=== PATIENT | male | born 1970 | race Caucasian/White ===

== ENCOUNTER 2017-01-11 11:20 | Observation (INO) | payer BC ==
[~2017-01-11] VITALS: Ht 177.8 cm; Wt 112.7 kg
[~2017-01-11 11:20] MED LIST: GLYBURIDE 5MG TA5 MG PO; JARDIANCE25 MG PO; METFORMIN 500M500 M1 PO; NAPROSYN 500MG500 MG PO; SYNTHROID 0.00.05 MG PO
[2017-01-11 11:22] VITALS: BP 137/86
[2017-01-11 11:48] LABS: HEMOGLOBIN 15.2 g/dL (14.1-18.0); LYMPH # 3.4 K/mm3 (0.7-4.5); LYMPH % 41.6 % (10-50)
--- NOTE | 2017-01-11 11:52 | Emergency Room Report ---
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 N Clinical Suspician of Infection? N Mental Status: 1 - Regular (Normal Baseline) Sepsis Risk:Possible Sepsis Risk Have you (or family members/close friends) recently traveled outside the [place]? N If Yes, where/when: Have you had exposure to infectious disease within the past month? N TB? Other? Specify: 46 years old white male with history of reflux disease, he signed in with a chief complaint of shortness of breath. He states that he has a reflux disease and he feels acid taste in his mouth and he must have aspirated some of his acid. Although he signed in as a chest pain he denies having pressure heaviness palpitations nausea vomiting. I had an initial suspicious electrocardiogram of an ST elevation in inferior leads. Upon repeating the electrocardiogram that was normal ST abnomality. Source patient, RN notes reviewed, family Exam Limitations no limitations ALLERGIES Uncoded Allergies: PAIN MEDS (11/26/16) Home Medications Reported Medications Levothyroxine Sodium (Synthroid 0.05MG) NAPROXEN (NAPROSYN 500MG TAB) Metformin HCl (Metformin) Glyburide (Glyburide 5MG) Empagliflozin (Jardiance) History Medical History General Thyroid Problems? Yes Diabetes? Yes Insulin Dependent: No Insulin Pump: No Home FSBS? No Renal Insuffiency? No Arthritis? Yes Immunization Hx DT/Tetanus Unknown Surgical Hx Previous Surgery?Y PERIODONTAL 2005 Family History Family Hx Diabetes Yes Social History Smoking Hx Smoker: Never Smoker Tobacco: No Alcohol Alcohol: No Review of Systems All Other Systems Reviewed and Negative Constitutional no symptoms reported Eyes no symptoms reported ENT no symptoms reported, see HPI (acid in the mouth). Respiratory see HPI, shortness of breath Cardiovascular see HPI, chest pain Gastrointestinal no symptoms reported, see HPI (heart burn) Genitourinary no symptoms reported. Musculoskeletal no symptoms reported Skin no symptoms reported Psychiatric/Neurological no symptoms reported Physical Exam Vital Signs Vital Signs Date Time Temp Pulse Resp B/P Pulse O2 O2 Flow FiO2 Ox Delivery Rate 01/11 1308 90 20 107/64 90 01/11 1159 89 20 129/74 99 01/11 1158 97 22 129/74 100 01/11 1122 98.1 90 22 137/86 97 - WBC >12,000 or <4,000 or 10% bands? 2 or more SIRS Criteria Met? B/P:137/86 MAP:103 Creatinine >2.0? UA output<0.5ml/kg/hr for 2 hrs? Platelet count >100,000? Lactate >2.0mmol/1? INR >1.2 or PTT > than 60 sec? Evidence of Organ Dysfunction? Provider documented clinical suspician of infection? N Sepsis Criteria Count: 2 Sepsis Risk: Possible Sepsis Risk General Appearance moderate distress Eye Exam - bilateral eye normal exam, bilateral eye PERRL, bilateral eye EOMI Ear, Nose, Throat hearing grossly normal, normal ENT inspection Neck normal inspection, non-tender, supple, full range of motion Respiratory Status Yes: trachea midline, chest symmetrical, non tender chest. No: respiratory distress. Lung Sounds bilateral: lungs clear. Cardiovascular normal exam, regular rate/rhythm, no peripheral edema, no gallop, no JVD, no murmur, no rub, normal peripheral pulses Peripheral Pulses Pulses normal Yes Gastrointestinal normal bowel sounds, normal exam, non tender, soft, no organomegaly Back normal inspection, no CVA tenderness, no vertebral tenderness Extremities non-tender, normal range of motion, normal inspection Neurologic alert, overnight stocker II-XII nml as tested, normal exam, oriented x 3 Reflexes Reflexes normal Yes Skin intact, normal color, warm/dry Medical Decision Making LABS/Meds/Orders Pt receiving controlled substance in ED? No Results/Orders Laboratory Tests 01/11/17 1130: Sodium 138, Potassium 3.8, Chloride 101, Carbon Dioxide 26, BUN 20 H, Creatinine 1.1, Estimated Creat Clear 129, Estimated GFR (MDRD) 71, Glucose 169 H, Calcium 8.8, Total Bilirubin 0.5, AST 28, ALT 47, Alkaline Phosphatase 67, Creatine Kinase 499 H, CK-MB (CK-2) Rel Index 0.7, CK and CKMB Interp 3.3, Troponin I < 0.02, B-Natriuretic Peptide < 5, Total Protein 7.0, Albumin 3.8, Globulin 3.2, Albumin/Globulin Ratio 1.2, D-Dimer < 100, WBC 8.2, RBC 5.25, Hgb 15.2, Hct 45.6, MCV 86.7, RDW 13.5, Plt Count 289, MPV 6.9 L, Gran % 48.6, Gran # 4.0, Lymphocytes % 41.6, Monocytes % 6.2, Eosinophils % 2.9, Basophils % 0.6, Lymphocytes # 3.4, Monocytes # 0.5, Eosinophils # 0.2, Basophils # 0.1, PUBS MCHC 33.4, MCH 29.0 Current Medication Orders Sig/Dharmesh Start time Last Medication Dose Route Stop Time Status Admin Multi-Ingredient GI 60 ML ONCE ONE 01/11 1200 DC 01/11 Drug PO 01/11 1201 1155 Multi-Ingredient GI 0 .STK-MED ONE 01/11 1154 DC Drug PO Albuterol 2.5 MG ONCE ONE 01/11 1145 DC 01/11 INH 01/11 1146 1149 Aspirin 324 MG ONCE ONE 01/11 1145 DC 01/11 PO 01/11 1146 1137 Nitroglycerin 0.5 IN ONCE ONE 01/11 1145 DC 01/11 TP 01/11 1146 1146 Pantoprazole Sodium 40 MG ONCE ONE 01/11 1145 DC 01/11 IV 01/11 1146 1146 Sodium Chloride 10 ML ONCE ONE 01/11 1145 DC IV 01/11 1146 Nitroglycerin 0 .STK-MED ONE 01/11 1144 DC .ROUTE Pantoprazole Sodium 0 .STK-MED ONE 01/11 1144 DC IV Nitroglycerin 0 .STK-MED ONE 01/11 1138 DC SL Aspirin 0 .STK-MED ONE 01/11 1135 DC .ROUTE Orders Procedure Date/time Status Decision to admit 01/11 1342 Active RT Aerosol Treatment, Provide 01/11 1149 Active RT REQUEST ALBUTEROL NEB 01/11 1141 Active 12 LEAD EKG-LAWSON (INITIAL) 01/11 1130 Active ELECTROCARDIOGRAM REQUEST 01/11 1130 Active D-DIMER 01/11 1130 Complete CBC WITH AUTO DIFF 01/11 1130 Complete CARDIAC ENZYMES 01/11 1130 Complete CHEM 12 PROFILE 01/11 1130 Complete BRAIN NATRIURETIC PEPTIDE 01/11 1130 Complete CM/EKG CM/EKG EKG present medications 96/m questionable ST elevation in one lead at Lead II. Multiple beats in lead III and corrected in AVF. 12 minutes repeated EKG Electrocardiogram with controlled respiration normal sinus [address] segement is normal, p. ars and T waves are within normal. no acutre XRAY/CT/US XRAY/CT/US XRAY chest XR interpretation by reviewed by me, discussed w/radiologist Xray Results normal/NAD Departure Departure Time of Disposition 1352 Disposition Still a Patient Clinical Impression Primary Impression: Chest pain Secondary Impressions: Reflux esophagitis, Shortness of breath Condition STABLE Referrals Halie HERNÁNDEZ,Bean (Family) Additional Instructions The patient felt better and first set of enzymes were normal except total CK. I discussed with him the need for admission and work up and he agreed. I spoke with dr stephens covering for Dr Singh who agreed to admmit for r/o VT and Cardiology consult. He was admitted in a stable condtition. Dr. Miguel Discharge Counseling Counseled pt/family regarding diagnosis, test results, medications/RX, follow up needs ED Critical Care Critical Care No If Critical Care minutes are documented, the time involved in the performance of seperately reportable procedures was not counted toward critical care time documented. I directly delivered medical care to this critically ill and/or injured patient. Timely evaluation and treatment was necessary to address the significant organ system(s) dysfunction present in this patient. at 1354
[2017-01-11 12:14] LABS: BUN 20 mg/dL (7-18)
[2017-01-11 12:16] LABS: GFR (ESTIMATED) 71 ML/MIN (>60)
--- NOTE | 2017-01-11 13:20 | RADIOLOGY REPORT PS360 ---
CHEST(2 VIEWS-NOT PORTABLE) COMPARISON: PA and lateral chest 12/01/2016 HISTORY: Chest pain TECHNIQUE: PA and lateral chest FINDINGS: The lung harrington are well expanded and appear clear of infiltrate. The cardiac silhouette is normal and the vascularity is normal. Again noted is a large calcified subcarinal node. There is no pleural fluid. IMPRESSION: Old granulomatous disease, no acute chest pathology noted
[2017-01-11 14:47] VITALS: BP 112/62
[2017-01-11 20:14] VITALS: BP 111/71
[2017-01-11 20:50] VITALS: BP 111/71
--- NOTE | 2017-01-11 23:00 | HISTORY AND PHYSICAL REPORT ---
History and Physical ([facility]CA) Date of admission: 01/11/17 Chief complaint: Acid reflux with possible aspiration. History: History of Present Illness: This 46-year-old white male was admitted in the emergency room this morning. He states that he was awakened about 10:30 this morning with a feeling of acid in his throat and the possibility that he had aspirated some of this. He was coughing and congested. He has had problems in the past with acid reflux. He also suffers from nonalcoholic steatohepatitis has had a history of elevated liver enzymes. He also has type 2 diabetes and is maintained on oral medications for that. He also has hypothyroidism. The emergency room doctor was concerned about possibility of chest pain. The patient does not feel that this has been the problem. He relates it directly to the episode this morning where he aspirated some stomach acid. Past Medical History: Medical History: CAD? No Angina: No [place]: No Hypertension? No Hyperlipidemia? No CHF? No DVT? No PE? No COPD? No Asthma? No (but takes montelukast) Anemia? No GERD? Yes Gastric ulcers? No GI Bleed? No Hernia? No Thyroid Problems? Yes (levothyroxine 50 mcg) Hypothyroidism? Yes CVA? No Seizures? No Diabetes? Yes (Jardiance,metformin,glyburide) Insulin Dependent: No Insulin Pump: No Home FSBS? No (A1c 7.6 percent, 10/23/16) Renal Insuffiency? No UTI? No Stones? No BPH? No GB Disease: No Nephritic Syndrome? No Asplenia? No Hepatitis? Yes (GLASER) Sickle Cell Disease? No Arthritis? Yes Migraines? No Cataracts? No Glaucoma? No MRSA? No HIV? No TB? No Anxiety? No Depression? Yes (PAST HX MENTIONS MEMORY Loss) Cancer? No More? Yes Additional hx: HYPOTHYROIDISM, DIVERTICULITIS,Colon polyps, low Vitamin D Additional medical history: Last GI DOS was 06/26/2015 Surgical history: Previous Surgery?Y 1. PERIODONTAL 2004 2. Colonoscopy 2003 (nonpecancerous polyps) " 2004 and 2005 Medications: Reported Medications Levothyroxine Sodium (Synthroid 0.05MG) NAPROXEN (NAPROSYN 500MG TAB) Metformin HCl (Metformin) Glyburide (Glyburide 5MG) Empagliflozin (Jardiance) Allergies: Uncoded Allergies: PAIN MEDS (11/26/16) Family History: Family history: Postive for: DM. Negative for: CAD. Additional family history: His father with some gastrointestinal problems which led eventually to esophageal varices. Social History: Smoking Hx Tobacco: No Smoker: Former Smoker Type: Cigarettes Packs/day: N/A Are you exposed to second hand No Alcohol: Alcohol: No Hx of Drug Use: Drug Use? No Patien't marital status is: (2 children 10 y.o. and 4 y.o.) Patient's support system is: good Review of Systems: Patient unresponsive? No Constitutional No: chills, fatigue, lethargy, malaise, weak, recent weight loss. ENT No: ear ache, nose bleed, ear drainage, hearing loss, mouth pain, nasal congestion, ear ringing, sinus problems, sore throat, throat swelling, tongue pain, tongue swelling, toothache, voice change. Cardiovascular No: [place], chest pain, edema, palpitations. Respiratory Positive for: non-productive (and congestion). No: dyspnea on exertion, shortness of air. GI Positive for: GERD. No: abdominal pain, anorexia, constipation, diarrhea, hematemeis, hematochezia, nausea, vomitting. (male) No: flank pain, frequency, penile discharge, testicular pain. Skin No: rash, swelling. Neurological No: change in LOC, bladder dysfunction, bowel dysfunction, confusion, dizziness, gait problem, headache, seizure, slurred speech, syncope. Immune/allergy Positive for: allergy (opiods). Eyes No: blurry vision, redness. Musculoskeletal No: joint pain, joint swelling. Heme No: bleeding. Psychiatric No: confused, delusional, change in mental status. Physical Exam: Vital signs: 1ST Vital Signs Result Date Time Pulse Ox 97 01/11 1122 B/P 137/86 01/11 1122 Temp 98.1 01/11 1122 Pulse 90 01/11 1122 Resp 22 01/11 1122 O2 Delivery ROOM AIR 01/11 1447 Exam: General appearance: normal appearance, alert, no acute distress Eyes: anicteric, conjunctiva clear, PERRLA ENT: mucous membranes moist Neck: normal inspection Cardiovascular: regular rate & rhythm Respiratory: aerating well, clear to auscultation, no respiratory distress ABD: soft, no tenderness, no organomegaly Extremities: no peripheral edema Musculoskeletal: normal exam Skin: dry, intact Neuro: alert, no deficit, oriented, speech clear Lab data: Labs: Laboratory Tests 01/11/17 1738: Troponin I < 0.02 01/11/17 1130: Hemoglobin A1c 7.7 H 01/11/17 1130: Sodium 138, Potassium 3.8, Chloride 101, Carbon Dioxide 26, BUN 20 H, Creatinine 1.1, Estimated Creat Clear 129, Estimated GFR (MDRD) 71, Glucose 169 H, Calcium 8.8, Total Bilirubin 0.5, AST 28, ALT 47, Alkaline Phosphatase 67, Creatine Kinase 499 H, CK-MB (CK-2) Rel Index 0.7, CK and CKMB Interp 3.3, Troponin I < 0.02, B-Natriuretic Peptide < 5, Total Protein 7.0, Albumin 3.8, Globulin 3.2, Albumin/Globulin Ratio 1.2, D-Dimer < 100, WBC 8.2, RBC 5.25, Hgb 15.2, Hct 45.6, MCV 86.7, RDW 13.5, Plt Count 289, MPV 6.9 L, Gran % 48.6, Gran # 4.0, Lymphocytes % 41.6, Monocytes % 6.2, Eosinophils % 2.9, Basophils % 0.6, Lymphocytes # 3.4, Monocytes # 0.5, Eosinophils # 0.2, Basophils # 0.1, PUBS MCHC 33.4, MCH 29.0 Diagnosis(es): 1. Reflux esophagitis 2. Aspiration into airway 3. Type 2 diabetes mellitus 4. Hypothyroidism Additional information: Chest x-ray was normal on admission. Cardiac enzymes are negative. I'm not concerned about this being cardiac. Plan: See orders. He seems stable this evening. We'll recheck chest x-ray in the morning. at 2300
[2017-01-11 23:41] VITALS: BP 133/64
[2017-01-12 04:03] VITALS: BP 128/69
--- NOTE | 2017-01-12 07:27 | PHARMACY CLINIC NOTE ---
Patient Demographics Patient Demographics Admission date: 01/11/17 Date: 01/12/17 Time: 07 Allergies Uncoded Allergies: PAIN MEDS (11/26/16) HEIGHT- FT: 5 IN: 10.00 K.691 VTE General Information Labs: Laboratory Tests 01/11 1130 Hematology Hgb (14.1 - 18.0 g/dL) 15.2 Hct (42.0 - 52.0 %) 45.6 Plt Count (142 - 424 K/mm3) 289 Disclaimer The following section includes nursing documentation that has been pulled in for pharmacy review. Patient's VTE score: 1 Patient's VTE Risk: VERY LOW RISK Clinical trial participant? No VTE prophylaxis [id number] VTE prophylaxis ordered? Yes Type of prophylaxis/treatment: DICKSON at 0726
[2017-01-12 07:53] VITALS: BP 131/64
--- NOTE | 2017-01-12 08:59 | CONSULT NOTE ---
Standard Demographics Patient Demo Date of Consultation: 01/12/17 Referring Provider: Bean Ambrose MD Reason for Consultation: Chest pain PRIMARY DIAGNOSIS: CHEST PAIN Problem list Problem list: 1. DM, diagnosed about 2006 2. Remote tobacco use, stopped about 1996 3. Hypothyroidism 4. history of colon polyps History of present illness: History of present illness: 46 yo WM came to ER for chest discomfort felt to be related to GERD. Known to have reflux that responds to PPI in the past. Symptoms woke him from sleep and caused him to cough. He states he had a burning sensation and sour taste in his mouth. Denies any recent exertional symptoms. EKG is sinus with early repolarization changes in the inferior leads. Troponins normal x 3. Pt admitted for observation. Cardiology consulted for evaluation and recommendations. Past Medical History: General: Hypertension No CVA No Seizures No TB No COPD No Asthma No (but takes montelukast) Diabetes Yes (Jardiance,metformin,glyburide) Insulin Dependent No Insulin Pump No Angina No [place] No Hyperlipidemia No Cancer No Ulcers No MRSA No GB Disease No Additional hx HYPOTHYROIDISM, DIVERTICULITIS,Colon polyps, low Vitamin D Past Surgical HX: Previous Surgery?Y PERIODONTAL 2004 Allergies Uncoded Allergies: PAIN MEDS (11/26/16) Home medications: Reported Medications Levothyroxine Sodium (Synthroid 0.05MG) NAPROXEN (NAPROSYN 500MG TAB) Metformin HCl (Metformin) Glyburide (Glyburide 5MG) Empagliflozin (Jardiance) Current Medications: Current Medications Metoclopramide HCl 5 MG ACHS PO Metoclopramide HCl 0 .STK-MED ONE PO (DC) Metoclopramide HCl 0 .STK-MED ONE PO (DC) Sodium Chloride 10 ML PRN PRN IV Pantoprazole Sodium 40 MG BID IV Albuterol 0 .STK-MED ONE INH (DC) Albuterol/Ipratropium 0 .STK-MED ONE INH (DC) Acetaminophen 0 .STK-MED ONE PO (DC) Acetaminophen 650 MG Q4HP PRN PO Albuterol 2.5 MG Q6HP PRN INH Nicotine 21 MG DAILYP PRN TD Multi-Ingredient GI Drug 60 ML ONCE ONE PO (DC) Multi-Ingredient GI Drug 0 .STK-MED ONE PO (DC) Albuterol 2.5 MG ONCE ONE INH (DC) Aspirin 324 MG ONCE ONE PO (DC) Nitroglycerin 0.5 IN ONCE ONE TP (DC) Pantoprazole Sodium 40 MG ONCE ONE IV (DC) Sodium Chloride 10 ML ONCE ONE IV (DC) Nitroglycerin 0 .STK-MED ONE .ROUTE (DC) Pantoprazole Sodium 0 .STK-MED ONE IV (DC) Nitroglycerin 0 .STK-MED ONE SL (DC) Aspirin 0 .STK-MED ONE .ROUTE (DC) Immunization HX DT/Tetanus 5-10 Years Pneumonia Never Had TB Test in last year No Family history Family HX Family Hx Insignificant No Diabetes Yes CAD No Hypertension No Hyperlipidemia No Cancer No TB No Social Hx: Smoking HX Tobacco No Type Cigarettes Packs/day N/A Are you/the child exposed to second-hand smoke: No Alcohol Alcohol: No Hx of Drug Use Drug Use? No Review of systems: Constitutional No: no symptoms reported. Respiratory cough. Cardiovascular see HPI, chest pain Gastrointestinal/Abdominal see HPI Genitourinary No: no symptoms reported. Musculoskeletal No: no symptoms reported. Neurological No: no symptoms reported. Exam: Admission Vital Signs: 1ST Vital Signs Result Date Time O2 Flow Rate 2 01/11 0500 Pulse Ox 97 01/11 1122 B/P 137/86 01/11 1122 Temp 98.1 01/11 1122 Pulse 90 01/11 1122 Resp 22 01/11 1122 O2 Delivery ROOM AIR 01/11 1447 Last Vital Signs: Vital Signs Result Date Time Pulse Ox 92 / 0753 B/P 131/64 01/12 0753 O2 Delivery OXYGEN 01/12 0753 Temp 98.3 01/12 0753 Pulse 88 01/12 0753 Resp 18 01/12 0753 O2 Flow Rate 2 01/12 0648 Exam General appearance: alert, awake, no acute distress Neck: no carotid bruit, no JVD Cardiovascular: regular rate & rhythm, no murmur Respiratory: clear to auscultation, good air movement ABD: soft, no tenderness Extremities: moves all, no peripheral edema Neuro: alert, intact, oriented Laboratory data: Laboratory Tests 01/11/17 2330: Troponin I < 0.02 01/11/17 1738: Troponin I < 0.02 01/11/17 1130: Hemoglobin A1c 7.7 H 01/11/17 1130: Sodium 138, Potassium 3.8, Chloride 101, Carbon Dioxide 26, BUN 20 H, Creatinine 1.1, Estimated Creat Clear 129, Estimated GFR (MDRD) 71, Glucose 169 H, Calcium 8.8, Total Bilirubin 0.5, AST 28, ALT 47, Alkaline Phosphatase 67, Creatine Kinase 499 H, CK-MB (CK-2) Rel Index 0.7, CK and CKMB Interp 3.3, Troponin I < 0.02, B-Natriuretic Peptide < 5, Total Protein 7.0, Albumin 3.8, Globulin 3.2, Albumin/Globulin Ratio 1.2, D-Dimer < 100, WBC 8.2, RBC 5.25, Hgb 15.2, Hct 45.6, MCV 86.7, RDW 13.5, Plt Count 289, MPV 6.9 L, Gran % 48.6, Gran # 4.0, Lymphocytes % 41.6, Monocytes % 6.2, Eosinophils % 2.9, Basophils % 0.6, Lymphocytes # 3.4, Monocytes # 0.5, Eosinophils # 0.2, Basophils # 0.1, PUBS MCHC 33.4, MCH 29.0 Plan: Assessment: 1. chest pain, atypical features 2. GERD 3. DM 4. Hypothyroidism Recommendations: 1. Pt does not want to pursue any cardiac testing at this time. Recommend GXT myoview to evaluate for CAD in this mcfp diabetic. With normal troponins and EKG without acute changes at this time, he could arrange this as outpatient. Would add ASA 81 mg daily. 2. Daily use of PPI due to GERD symptoms at 0858
--- NOTE | 2017-01-12 09:56 | RADIOLOGY REPORT PS360 ---
CHEST(2 VIEWS-NOT PORTABLE) HISTORY: WHEEZING ORDERING PHYSICIAN: William Cordova MD PATIENT AGE: 46 years COMPARISON: 01/11/2017 FINDINGS: The cardiomediastinal silhouette and pulmonary vascularity are within normal limits. Increase in density is present in the left lung base posteriorly consistent with atelectasis and/or infiltrate. The remaining lungs are clear. Calcified granulomas present in the right middle lobe. No acute bony abnormalities. IMPRESSION: Left lower lobe atelectasis and/or infiltrate
--- NOTE | 2017-01-12 10:13 | ACUTE CARE PROGRESS NOTE (QUA) ---
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 SOB with exertion Objective Findings Laboratory Tests 01/11/17 2330: Troponin I < 0.02 01/11/17 1738: Troponin I < 0.02 01/11/17 1130: Hemoglobin A1c 7.7 H 01/11/17 1130: Sodium 138, Potassium 3.8, Chloride 101, Carbon Dioxide 26, BUN 20 H, Creatinine 1.1, Estimated Creat Clear 129, Estimated GFR (MDRD) 71, Glucose 169 H, Calcium 8.8, Total Bilirubin 0.5, AST 28, ALT 47, Alkaline Phosphatase 67, Creatine Kinase 499 H, CK-MB (CK-2) Rel Index 0.7, CK and CKMB Interp 3.3, Troponin I < 0.02, B-Natriuretic Peptide < 5, Total Protein 7.0, Albumin 3.8, Globulin 3.2, Albumin/Globulin Ratio 1.2, D-Dimer < 100, WBC 8.2, RBC 5.25, Hgb 15.2, Hct 45.6, MCV 86.7, RDW 13.5, Plt Count 289, MPV 6.9 L, Gran % 48.6, Gran # 4.0, Lymphocytes % 41.6, Monocytes % 6.2, Eosinophils % 2.9, Basophils % 0.6, Lymphocytes # 3.4, Monocytes # 0.5, Eosinophils # 0.2, Basophils # 0.1, PUBS MCHC 33.4, MCH 29.0 Vital Signs Date Time Temp Pulse Resp B/P Pulse O2 O2 Flow FiO2 Ox Delivery Rate 01/12 0753 98.3 88 18 131/64 92 OXYGEN 01/12 0648 2 01/12 0551 2 01/12 0403 2 01/12 0403 98.1 80 18 128/69 92 OXYGEN 2 01/12 0300 2 01/12 0200 2 01/12 0100 2 01/11 2341 2 01/11 234 98.1 93 20 133/64 97 OXYGEN 2 01/11 2230 2 01/11 2200 2 01/11 2200 2 01/11 220 89 ROOM AIR 2 01/11 2200 89 ROOM AIR 01/12 2156 90 ROOM AIR 01/11 2050 98.3 86 18 111/71 92 01/11 2014 98.3 86 18 111/71 92 ROOM AIR 01/11 1447 84 01/11 144 98.3 84 18 112/62 01/11 144 92 ROOM AIR 01/11 1447 98.3 84 18 112/62 92 ROOM AIR 01/11 1413 98.1 87 20 98/45 92 01/11 1355 87 20 98/45 87 / 1308 90 20 107/64 90 01/11 1159 89 20 129/74 99 01/11 1158 97 22 129/74 100 01/11 1122 98.1 90 22 137/86 97 Current Medications Aspirin 81 MG DAILY PO Metoclopramide HCl 5 MG ACHS PO Metoclopramide HCl 0 .STK-MED ONE PO (DC) Metoclopramide HCl 0 .STK-MED ONE PO (DC) Sodium Chloride 10 ML PRN PRN IV Pantoprazole Sodium 40 MG BID IV Albuterol 0 .STK-MED ONE INH (DC) Albuterol/Ipratropium 0 .STK-MED ONE INH (DC) Acetaminophen 0 .STK-MED ONE PO (DC) Acetaminophen 650 MG Q4HP PRN PO Albuterol 2.5 MG Q6HP PRN INH Nicotine 21 MG DAILYP PRN TD Multi-Ingredient GI Drug 60 ML ONCE ONE PO (DC) Multi-Ingredient GI Drug 0 .STK-MED ONE PO (DC) Albuterol 2.5 MG ONCE ONE INH (DC) Aspirin 324 MG ONCE ONE PO (DC) Nitroglycerin 0.5 IN ONCE ONE TP (DC) Pantoprazole Sodium 40 MG ONCE ONE IV (DC) Sodium Chloride 10 ML ONCE ONE IV (DC) Nitroglycerin 0 .STK-MED ONE .ROUTE (DC) Pantoprazole Sodium 0 .STK-MED ONE IV (DC) Nitroglycerin 0 .STK-MED ONE SL (DC) Aspirin 0 .STK-MED ONE .ROUTE (DC) 01/11 1500 01/11 2300 01/12 0700 Intake Total 600 Output Total Balance 600 Intake, Oral 600 Patient 248 lb Weight Last VS-Temp:98.3 B/P:131/64 Pulse:88 Resp:18 SaO2:92 OXYGEN Last weight lbs:248 oz:7 K.691 Method:Bed Scales 01/11/17 CXR IMPRESSION: Old granulomatous disease, no acute chest pathology noted 01/12/17 IMPRESSION: Left lower lobe atelectasis and/or infiltrate Exam General appearance: alert, active, no acute distress, well-developed, well- nourished Cardiovascular: regular rate & rhythm Respiratory: clear to auscultation (bilat anterior and posterior) Extremities: no peripheral edema, no calf tenderness Neuro: alert, oriented, speech clear Assessment/Plan Problem List 1. Reflux esophagitis 2. Aspiration into airway 3. Type 2 diabetes mellitus 4. Hypothyroidism 5. Pneumonia Patient condition Stable Plan: repeat CXR reveals LLL infiltrate; will add ABX This inpt stay is expected to cross 2 MNs from start of care No at 1012
[2017-01-12 10:59] VITALS: BP 131/64
[2017-01-12 11:30] LABS: HEMOGLOBIN 14.6 g/dL (14.1-18.0); LYMPH # 2.5 K/mm3 (0.7-4.5); LYMPH % 25.8 % (10-50)
[2017-01-12 11:46] VITALS: BP 93/61
[2017-01-12] MEDS ORDERED: CEFTIN 250MG T250 MG PO (13:47)
[2017-01-12] MEDS ORDERED: ASPIR 8181 MG PO (13:48)
[2017-01-12] MEDS ORDERED: METOCLOPRAMIDE H5 MG PO (13:49)
[2017-01-12] MEDS ORDERED: PANTOPRAZOLE 40 MG IV (13:50)
[2017-01-12] MEDS ORDERED: ALBUTEROL-200 PUFFS/ IH (13:51)
[2017-01-12 15:11] VITALS: BP 93/61
--- NOTE | 2017-01-14 10:35 | DISCHARGE SUMMARY STANDARD ---
Discharge Summary ([facility]) Date of admission: 01/11/17 Date of discharge: 01/12/17 Problem List: 1. Reflux esophagitis 2. Aspiration into airway 3. Type 2 diabetes mellitus 4. Hypothyroidism 5. Pneumonia History of present illness: Mr. Jean was a 46-year-old white male who was admitted thru the emergency room. He stated that he was awakened about 10:30 on the morning of admission with a feeling of acid in his throat and the possibility that he had aspirated some of this. He was coughing and was congested. He had had problems in the past with acid reflux. He also suffered from nonalcoholic steatohepatitis had a history of elevated liver enzymes. He also had type 2 diabetes and was maintained on oral medications. He also had hypothyroidism. The emergency room doctor was concerned about possibility of chest pain. The patient did not feel that this had been the problem. He related it directly to the episode that morning where he aspirated some stomach acid. Exam on admission: General appearance: normal appearance, alert, no acute distress Eyes: anicteric, conjunctiva clear, PERRLA ENT: mucous membranes moist Neck: normal inspection Cardiovascular: regular rate & rhythm Respiratory: aerating well, clear to auscultation, no respiratory distress ABD: soft, no tenderness, no organomegaly Extremities: no peripheral edema Musculoskeletal: normal exam Skin: dry, intact Neuro: alert, no deficit, oriented, speech clear Hospital Course: The patient was admitted for cardiac workup. CXR was normal. Cardiac enzymes were negative. Dr. Cordova did not feel symptoms were cardiac in origin and planned to recheck CXR the following day. Cardiology was consulted and saw the patient, who refused further cardiac testing. Cardiology recommended daily ASA and PPI with outpatient followup for GXT. The following day, repeat CXR showed LLL infiltrate. The patient was started on oral antibiotic and felt to be stable for discharge home with instruction for outpatient followup. Discharge medications: Continue taking these medications: Levothyroxine Sodium (Synthroid 0.05MG) 50 MCG TABLET 50 MICROGRAM ORAL DAILY NAPROXEN (NAPROSYN 500MG TAB) 500 MG TABLET 500 MILLIGRAM ORAL TWICE A DAY Metformin HCl (Metformin) 500 MG TABLET 1,000 MILLIGRAM ORAL TWICE A DAY Glyburide (Glyburide 5MG) 5 MG TABLET 5 MILLIGRAM ORAL DAILY Empagliflozin (Jardiance) 25 MG TABLET 25 MILLIGRAM ORAL DAILY Start taking the following new medications: CEFUROXIME AXETIL (CEFTIN 250MG TAB) 250 MG TABLET 500 MILLIGRAM ORAL TWICE A DAY Days = 7 No Refills Aspirin (Aspirin EC 81MG Tab) 81 MG TABLET.DR 81 MILLIGRAM ORAL DAILY Qty = 30 Refills = 1 Pantoprazole Sodium (Protonix IV) 40 MG VIAL 40 MILLIGRAM INTRAVEN DAILY Qty = 30 Refills = 3 Metoclopramide Hydrochloride (Metoclopramide HCl) 5 MG TABLET 5 MILLIGRAM ORAL DAILY Qty = 30 Refills = 3 Instructions: before heaviest meal of the day Albuterol (Albuterol-Hfa Inhaler) 8 GM HFA.AER.AD 1 PUFF INHALATION FOUR TIMES A DAY Qty = 1 Refills = 5 Instructions: until cough resolves and then prn Disposition: Follow up with: Bean Ambrose MD Follow up: 7 DAYS Activity: Cont Current activity Diet: Diabetic Diet Discharge to: HOME Agency needed? N at [id number]
== END 2017-01-12 15:20 | disposition home or self-care (01) ==
LOC: ER 11:20 → 2ND 13:43 → ER 13:43 → 2ND 14:40
PROVIDERS: Emergency Medicine; Family Medicine
DX: K21.0 Gastro-esophageal reflux disease with esophagitis (principal); E11.9 Type 2 diabetes mellitus without complications; E03.9 Hypothyroidism, unspecified; J18.9 Pneumonia, unspecified organism; R07.9 Chest pain, unspecified
CPT/HCPCS: G0378